=== PATIENT | male | born 1940 | race African-American/Black ===

== ENCOUNTER 2019-03-07 11:08 | Inpatient (IN) | payer OTHER ==
[~2019-03-07] VITALS: Ht 185.4 cm; Wt 72.6 kg
[2019-03-07 11:22] VITALS: Ht 185.4 cm; Wt 72.6 kg
--- NOTE | 2019-03-07 11:45 | NUR ---
C/O HEADACHE, NAUSEA AND VOMITING X 1 WEEK ALSO CO OF DIZZINESS. TO TX AREA PREP FOR ERMD MSE. AGENCY DOCUMENTATION DONE BY Staff Name/Title - :LAINE WHEATLEY RN [employer] User ID - :[id number] Agency Name - :CERTIFIED Time Documented - From - :0700 To - :1900
--- NOTE | 2019-03-07 12:07 | NUR ---
IV ESTABLISHED. MEDS GIVEN PER ORDER.
[2019-03-07 12:28] LABS: BASOPHIL % 0.5 % (0-2); PLATELET COUNT 263 x10^3mcL (130-400)
[2019-03-07 12:34] LABS: RED CELL DISTRIBUTION WIDTH 15.6 % (11.5-14.5)
--- NOTE | 2019-03-07 13:12 | NUR ---
PT SLEEPING AT THIS TIME. NAD. VSS. TO CONTINUE TO MONITOR.
[2019-03-07 13:40] LABS: CALCIUM 9.9 mg/dL (8.5-10.1); CHLORIDE SERUM 103 mmol/L (98-107); CREATININE SERUM 2.6 mg/dL (0.7-1.3); GLUCOSE SERUM 198 mg/dL (74-106); POTASSIUM SERUM 4.7 mmol/L (3.5-5.1); SODIUM SERUM 140 mmol/L (136-145)
[2019-03-07 13:45] LABS: ALBUMIN 3.5 g/dL (3.4-5.0); ALKALINE PHOSPHATASE 162 U/L (46-116); ALT/SGPT 24 U/L (16-63); AST/SGOT 22 U/L (15-37); BILIRUBIN TOTAL 0.37 mg/dL (0.20-1.00)
[2019-03-07 13:48] LABS: TOTAL PROTEIN, SERUM 8.4 g/dL (6.4-8.2)
--- NOTE | 2019-03-07 14:37 | NUR ---
INFLUENZA SWAB OBTAINED AND SENT.
[2019-03-07 15:03] LABS: microscopic required? YES; urine erythrocyte 1+ (NEGATIVE)
--- NOTE | 2019-03-07 16:53 | NUR ---
REPORT CALLED TO [facility].
--- NOTE | 2019-03-07 17:16 | NUR ---
RECEIVED PT VIA [employer] FROM E/D, ACCOMPANIED BY RN AND TRANSPORTER. PT A/A/O X 4, CALM, COOPERATIVE; C/O CONSTANT THROBBING H/A 12/25. ON TELE # 23, ST W/ DEPRESSED T-WAVES, HR 103, DENIES CHEST PAIN OR DISCOMFORT AT THIS TIME. SCD BY BEDSIDE. NO ACUTE RESPIRATORY DISTRESS NOTED. POOR PO INTAKE 2/2 DIFFICULTY CHEWING R/T "BAD TEETH"; LOST >10# X 1 MO. UA +MANY BACTERIA, WBC, RBC; DENIES DYSURIA. 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 IV SITE L THUMB 24G, CDI. ORIENTED PT TO ROOM, BED CONTROLS, CALL LIGHT SYSTEM. SIDE RAILS UP X 2, BED IN LOW POSITION. WILL ENDORSE TO LITZY ARRIAGA.
--- NOTE | 2019-03-07 17:43 | NUR ---
NORCO GIVEN PER EMAR FOR C/O 10/25 FONSECA, WILL REASSESS.
[2019-03-07 18:45] VITALS: BP 138/63
--- NOTE | 2019-03-07 18:49 | NUR ---
PT STABLE, CURRENTLY ASLEEP IN BED WITH NO S/S OF ANY PAIN OR DISTRESS. IV TO LEFT THUMB CDI AND PATENT. TELE#23 CONNECTED TO PT, NO S/S OF ANY CP OR PRESSURE AT THIS TIME. SAFETY PRECAUTIONS IN PLACE, CALL LIGHT WITHIN REACH, WILL ENDORSE CARE TO NIGHT NURSE.
--- NOTE | 2019-03-07 19:30 | NUR ---
Pt. received from day shift, awake and alert, currently resting in bed. Pt. at this time is a/o x3, able to make needs known, able to follow commands and has c/o of h/a but was medicated by day shift and says it is tolerable at this time. Will continue to monitor. Pt. has no c/o of SOB, chest pain, or discomofort at this time. H/a is tolerable. Pt. came in with UTI and received ab(x) t(x) in the ED as per day shift. No orders for ab(x) t(x) follow up was ordered, will endorse to kaykay villela MD at this time. Otherwise, pt. stable, safety in check with call light placed within reach, educated pt. on when and how to use call light system, bed set at lowest position, will continue to monitor pt. at this time.
[2019-03-07 19:49] LABS: CHOLESTEROL/HDL RATIO 2.4
[2019-03-07 21:04] VITALS: BP 139/72
--- NOTE | 2019-03-07 21:17 | NUR ---
Pt. stated that he does not recollect or remember being diagnosed with DM at this time when Pt. blood glucose was checked. Pt. BG is 110 at this time, so no insulin was required. Pt. states he does not have h(x) of DM and when checking the ER MD medical H & P they do state that he has h(x) of DM. Will continue to monitor pt. and endorse to rounding MD at this time.
--- NOTE | 2019-03-07 21:29 | NUR ---
Pt. requesting for something stronger for anti-nausea d/t zofran not working well when given earlier. Pt. also stated he is not diabetic, will request DC of accuchecks at this time. Pt. also requesting for something to help him sleep. Used [employer] to endorse to manohar COWART, will continue to monitor pt. at this time.
[2019-03-08 05:18] VITALS: BP 144/77
--- NOTE | 2019-03-08 05:20 | NUR ---
Pt. asleep for most of shift, was given ambien as ordered, check eMAR for time. Pt. had c/o of h/a that was tolerable before given ambien, and throughout shift has no c/o of pain, sob, or s/o distress or c/o of chest pain. Will Continue to monitor pt until end of shift and endorse to next shift RN at this time.
--- NOTE | 2019-03-08 06:30 | NUR ---
Pt. c/o of h/a at this time, 09/24, dull towards the right hemisphere. Will medicate pt. w/ [place] as ordered and continue to monitor and endorse to next shift RN
[2019-03-08 07:06] LABS: BASOPHIL % 0.7 % (0-2); PLATELET COUNT 247 x10^3mcL (130-400)
[2019-03-08 07:10] LABS: RED CELL DISTRIBUTION WIDTH 15.8 % (11.5-14.5)
[2019-03-08 07:30] LABS: CALCIUM 9.1 mg/dL (8.5-10.1); CHLORIDE SERUM 106 mmol/L (98-107); CREATININE SERUM 1.8 mg/dL (0.7-1.3); GLUCOSE SERUM 86 mg/dL (74-106); MAGNESIUM 2.1 mg/dL (1.8-2.4); PHOSPHOROUS 3.2 mg/dL (2.5-4.9); POTASSIUM SERUM 3.7 mmol/L (3.5-5.1); SODIUM SERUM 140 mmol/L (136-145)
--- NOTE | 2019-03-08 07:40 | NUR ---
RECEIVED PATIENT RESTING IN BED, NO ACUTE DISTRESS NOTED. PATIENT A/OX4, PATIENT C/O HEADACHE 06/25, PATIENT STATES HEADACHE IS TOLERABLE. TELE MONITOR IN PLACE, PATIENT DENIES CHEST PAIN. DENIES SOB, LUNG SOUNDS CTA. PATIENT VOIDS FREELY, DENIES URINARY FREQ, AND DYSURIA. RIGHT SIDED WEAKNESS NOTED, PATIENT ABLE TO ASSIST WITH REPOSITIONING. IV TO RFA CDI&PATENT, NS INFUSING AT 100ML/HR. CALL LIGHT WITHIN REACH, BED IN LOW POSITION. WILL CONTINUE TO MONITOR.
[2019-03-08 08:49] VITALS: BP 135/73
--- NOTE | 2019-03-08 09:55 | NUR ---
PATIENT WAS GIVEN 320Z OF WATER, PT AWARE HE MUST DRINK WATER AND NOTIFY NURSE WHEN BLADDER IS FULL. PATIENT AWARE IT IS NEEDED FOR ULTRASOUND. CALL LIGHT WITHIN REACH.
--- NOTE | 2019-03-08 10:11 | NUR ---
PATIENT BEGAN VOMITTING, OUTPUT 600ML. PATIENT REPORTED HE BEGAN FEELING NASEOUS AFTER DRINKING WATER. MEDICATED PATIENT WITH ZOFRAN PER PROTOCOL (SEE EMAR). WILL CONTINUE TO MONITOR PATIENT.
[2019-03-08 13:16] VITALS: BP 153/76
--- NOTE | 2019-03-08 15:59 | NUR ---
PATIENT WAS C/O OF HEADACHE 10/25, MEDICATED PATIENT WITH NORCO PER PROTOCOL(SEE EMAR). REDUCE STIMULI FOR COMFORT. CALL LIGHT WITHIN REACH. ALL NEEDS MET AT THIS TIME.
[2019-03-08 17:38] VITALS: BP 146/76
--- NOTE | 2019-03-08 18:28 | NUR ---
PATIENT RESTING IN BED, WATCHING TV. NO ACUTE DISTRESS NOTED. PATIENT C/O OF CONSTANT FONSECA BUT TOLERABLE AT THIS TIME. DENIES CHEST PAIN AND NAUSEA. NS IV INFUSING TO RFA AT 100ML/HR, IV SITE CDI&PATENT. ALL NEEDS MET AT THIS TIME, CALL LIGHT WITHIN REACH, BED IN LOW POSITON. WILL CONTINUE TO MONITOR AND ENDORSE REPORT.
[2019-03-08 19:42] LABS: microscopic required? YES; urine erythrocyte TRACE (NEGATIVE)
--- NOTE | 2019-03-08 20:25 | NUR ---
Awake and verbally responsive. No respiratory distress noted on room air. Denies pain. Denies n/v. Denies dysuria or hematuria. Will cont.to monitor. Call light within reach.
[2019-03-08 20:28] LABS: AMPHETAMINE QUAL UR NONE DETECTED (See below)
[2019-03-08 21:30] VITALS: BP 149/74
--- NOTE | 2019-03-09 03:59 | NUR ---
Afebrile. No significant change in conditon noted. Denies pain. Denies dysuria or hematuria. Voiding well using urinal. Turned and repositioned self in bed. In no apparent distress.
[2019-03-09 05:16] VITALS: BP 159/78
[2019-03-09 06:52] LABS: BASOPHIL % 0.6 % (0-2); PLATELET COUNT 264 x10^3mcL (130-400)
[2019-03-09 07:02] LABS: RED CELL DISTRIBUTION WIDTH 15.8 % (11.5-14.5)
[2019-03-09 07:07] LABS: CALCIUM 9.3 mg/dL (8.5-10.1); CARBON DIOXIDE 23.3 mmol/L (21-32); CHLORIDE SERUM 106 mmol/L (98-107); CREATININE SERUM 1.3 mg/dL (0.7-1.3); GLUCOSE SERUM 102 mg/dL (74-106); PHOSPHOROUS 2.9 mg/dL (2.5-4.9); POTASSIUM SERUM 3.9 mmol/L (3.5-5.1); SODIUM SERUM 139 mmol/L (136-145)
--- NOTE | 2019-03-09 08:00 | NUR ---
ALERT AND ORIENTED. BREATHING FREELY ON RA. NORCO HELPFUL FOR H/A. TELE # 23 ST. NO CHEST PAIN. RIGHT SIDED WEAKNESS. ABLE TO TURN AND REPOSITION SELF IN BED. WAITING FOR PT TO GO TO CT. CALL LIGHT WITHIN REACH.
[2019-03-09 08:30] VITALS: BP 161/75
--- NOTE | 2019-03-09 10:12 | NUR ---
PT BACK FROM CT SCAN. IV REATTCHED AND INFUSING.
--- NOTE | 2019-03-09 11:40 | NUR ---
C/O FEELING SCABS TO TOP OF HEAD ON SCALP. ALMOST UNNOTICABLE BLENDS IN WITH PTS HAIR THAT IS VERY SHORT. INSTRUCTED PT TO SPEAK TO PLANER HAND WHEN SHE COMES AROUND.NO BLEEDING OR DRAINAGE, NO REDNESS.FLAT TO SKIN.
[2019-03-09] MEDS ORDERED: NOR10 PO (12:35)
[2019-03-09] MEDS ORDERED: BACTRIM1 TAB PO (12:45)
[2019-03-09 12:50] VITALS: BP 149/68
[2019-03-09] MEDS ORDERED: CIPRO500 MG PO (12:54)
--- NOTE | 2019-03-09 14:16 | NUR ---
TELE # 23 RETURNED TO TELE STATION. PRESCRIPTIONS SENT TO [facility] ON [facility] IN [place]. ALL DC INSTRUCTIONS REVIEWED WITH AND SIGNED BY PT.
[2019-03-09] MEDS ORDERED: KEFLEX500 M1 PO (18:49)
== END 2019-03-09 14:55 | disposition home or self-care (01) | DRG 689 ==
LOC: ED 11:08 → DU 16:12
PROVIDERS: Emergency Medicine; ADMIT Family Medicine
DX: N39.0 Urinary tract infection, site not specified (principal); N17.0 Acute kidney failure with tubular necrosis; I69.351 Hemiplegia and hemiparesis following cerebral infarction affecting right dominant side; G44.209 Tension-type headache, unspecified, not intractable; F12.188 Cannabis abuse with other cannabis-induced disorder; I12.9 Hypertensive chronic kidney disease with stage 1 through stage 4 chronic kidney disease, or unspecified chronic kidney disease; N18.9 Chronic kidney disease, unspecified; I71.4 Abdominal aortic aneurysm, without rupture; D63.8 Anemia in other chronic diseases classified elsewhere; Z86.711 Personal history of pulmonary embolism
CPT/HCPCS: 82962; 87804; 97530-GP; G0378; J0360; J0696; J1885; J2405; J2765; Q0092

== ENCOUNTER 2019-03-21 09:34 | Emergency (ER) | payer OTHER ==
[~2019-03-21] VITALS: Ht 185.4 cm; Wt 72.6 kg
[~2019-03-21 09:34] MED LIST: BACTRIM1 TAB PO; CIPRO500 MG PO; KEFLEX500 M1 PO; NOR10 PO
[2019-03-21 09:40] VITALS: Ht 185.4 cm; Wt 72.6 kg
[2019-03-21 15:19] VITALS: BP 124/75
== END 2019-03-21 15:10 | disposition home or self-care (01) ==
LOC: ED 09:34
DX: R51 Headache (principal); N39.0 Urinary tract infection, site not specified
CPT/HCPCS: J0780; J1200; J1885